=== PATIENT | female | born 1995 | race African-American/Black ===

== ENCOUNTER 2019-03-20 12:51 | Emergency (ER) | payer SELFPAY ==
[~2019-03-20] VITALS: Ht 165.1 cm; Wt 59.0 kg
[~2019-03-20 12:51] MED LIST: IBUPROFEN600 M1 PO; Isovue-300 100ml vial INJ PRN; Ketorolac 30mg Inj IV ONE; NKM; ZOFRAN ODT4 MG ORAL
[2019-03-20 12:52] VITALS: BP 130/78
--- NOTE | 2019-03-20 12:55 | NUR ---
ED Nurse Note: Patient brought in by ambulance from home c/o upper abdominal pain that has been an on going isue for the past few days, rates her pain a 8/10 pain, denies any nausea or vomiting, rates her pain as a constant and cramping pain. patient is alert and oriented x4, ambulatory with a steady gait. IV placed on left AC 20 gauge, patient placed in a monitor, will wait for further orders
[2019-03-20] MEDS ORDERED: Ketorolac 30mg Inj ONE (13:11)
[2019-03-20 13:18] LABS: BASOPHILS % (AUTO) 1.4 % (0.0-2.0); EOSINOPHILS % (AUTO) 0.7 % (0.0-3.0); HEMATOCRIT 32.4 % (37.0-47.0); HEMOGLOBIN 10.4 G/DL (12.0-16.0); LYMPHOCYTES % (AUTO) 19.4 % (20.0-45.0); MEAN CORPUSCULAR VOLUME 83 FL (80-99); NEUTROPHILS % (AUTO) 64.6 % (45.0-75.0); PLATELET COUNT 284 K/UL (150-450); RED BLOOD COUNT 3.92 M/UL (4.20-5.40); RED CELL DISTRIBUTION WIDTH 15.5 % (11.6-14.8); WHITE BLOOD COUNT 8.4 K/UL (4.8-10.8)
[2019-03-20 13:22] LABS: ANION GAP 8 mmol/L (5-15); BLOOD UREA NITROGEN 7 mg/dL (7-18); CARBON DIOXIDE 27 MMOL/L (21-32); CHLORIDE 105 MMOL/L (98-107); CREATININE 0.7 MG/DL (0.55-1.30); POTASSIUM 2.9 MMOL/L (3.5-5.1); SODIUM 140 MMOL/L (136-145)
[2019-03-20 13:27] LABS: ALANINE AMINOTRANSFERASE 15 U/L (12-78); ALBUMIN 3.4 G/DL (3.4-5.0); ALBUMIN/GLOBULIN RATIO 0.8 (1.0-2.7); ALKALINE PHOSPHATASE 71 U/L (46-116); ASPARTATE AMINO TRANSFERASE 15 U/L (15-37); BILIRUBIN,TOTAL 0.3 MG/DL (0.2-1.0)
[2019-03-20 14:25] LABS: APPEARANCE,URINE VERY CLOUDY; BILIRUBIN, URINE NEGATIVE (NEGATIVE); GLUCOSE, URINE (UA) NEGATIVE (NEGATIVE); KETONES,URINE NEGATIVE (NEGATIVE); LEUKOCYTE ESTERASE ,URINE 2+ (NEGATIVE); NITRITE,URINE NEGATIVE (NEGATIVE); PH,URINE 6 (4.5-8.0); PROTEIN,URINE 1+ (NEGATIVE); UROBILINOGEN,URINE 1 MG/DL (0.0-1.0)
[2019-03-20 14:27] LABS: COLOR,URINE YELLOW
--- NOTE | 2019-03-20 14:39 | NUR ---
ED Nurse Note: Consent signed by patient for IV contrast. Patient went down to CT.
--- NOTE | 2019-03-20 15:42 | Diagnostic Imaging Report ---
Clinical Indication: Abdominal pain Technique: No oral contrast utilized, per emergency room physician request IV administration nonionic contrast. Venous phase spiral acquisition obtained through the abdomen and pelvis. Multiplanar reconstructions were generated. Total dose length product 319 mGycm. CTDIvol(s) 14 mGy. Dose reduction achieved using automated exposure control Comparison: none Findings: The lack of enteric contrast limits assessment of the GI tract. No evidence of diverticulosis or diverticulitis. The appendix is normal. No small bowel distention. No free or loculated intraperitoneal gas or fluid is evident. There is trace free pelvic fluid. No free intraperitoneal gas. The distal esophagus, stomach, duodenum are unremarkable. The liver demonstrates some focal fatty change in the usual location adjacent to the falciform ligament. No other focal abnormality. The gallbladder, bile ducts, pancreas, spleen, adrenals, kidneys are all unremarkable. No renal or ureteral calculi. No hydronephrosis or hydroureter. No pelvic mass or adenopathy. 2.5 cm presumed dominant follicle seen in the left ovary. The included lung bases are clear. The bones are unremarkable. Impression: Limited assessment of the GI tract, due to lack of enteric contrast administration No definite acute or significant abnormality demonstrated Trace free cul-de-sac fluid, presumably physiologic Incidental finding focal hepatic fatty change The CT scanner at [facility] is accredited by the [employer] and the scans are performed using protocols designed to limit radiation exposure to as low as reasonably achievable to attain images of sufficient resolution adequate for diagnostic evaluation.
--- NOTE | 2019-03-20 15:49 | Emergency Room Report ---
History of Present Illness General Chief Complaint: Abdominal Pain Source: Patient Present Illness HPI 24-year-old female with history of tobacco smoke, here brought in by paramedics due to 3 days of abdominal pain mainly focused on left lower quadrant. Patient rating her pain 10 out of 10 that started being more painful this morning. Denies pain radiation, diarrhea, constipation, blood in stool. Patient reports that she has been feeling nausea however denies vomiting. Denies her symptoms starting after consuming new food, or recent travel. Patient denies any drug use, and alcohol intake. Patient at the beginning does not tell me that she has history of ADHD and takes Adderall however later after I disclosed to her that there was amphetamine in her urine she did admit to taking Adderall intermittently for her ADHD. Patient denies fever and chills, chest pain, shortness of breath, palpitation, headache and dizziness. Denies urinary frequency however complains of painful urination. Denies all other associated symptoms. Last menstrual period was last week patient denies being sexually active and denies . Allergies: Coded Allergies: No Known Allergies (Unverified , 12/19/13) Patient History Past Medical History: see triage record Past Surgical History: unable to obtain Pertinent Family History: none Social History: Reports: smoking Last Menstrual Period: 03/11/19 Now: No Immunizations: UTD Reviewed Nursing Documentation: PMH: Agreed; PSxH: Agreed Nursing Documentation-PMH Past Medical History: No Stated History Review of Systems All Other Systems: negative except mentioned in HPI Physical Exam Vital Signs Date Time Temp Pulse Resp B/P (MAP) Pulse Ox O2 Delivery O2 Flow Rate FiO2 03/20/19 12:28 98.4 90 18 130/78 (95) 98 Sp02 EP Interpretation: reviewed, normal General Appearance: no apparent distress, alert, GCS 15, non-toxic Head: normocephalic, atraumatic Eyes: bilateral eye normal inspection, bilateral eye PERRL ENT: hearing grossly normal, normal pharynx, no angioedema, normal voice Neck: full range of motion, supple/symm/no masses Respiratory: chest non-tender, lungs clear, normal breath sounds, no rhonchi, no wheezing, speaking full sentences Cardiovascular #1: regular rate, rhythm, no edema, no murmur, normal capillary refill Gastrointestinal: normal bowel sounds, non tender, soft, no mass, no organomegaly, no peritonitis, no bruit, non-distended, no guarding, no hernia, no pulsatile mass, no rebound Rectal: deferred Genitourinary: normal inspection, no CVA tenderness Musculoskeletal: back normal, gait/station normal, normal range of motion, non- tender Neurologic: alert, oriented x3, responsive, motor strength/tone normal, sensory intact, speech normal Psychiatric: judgement/insight normal, memory normal, mood/affect normal, no suicidal/homicidal ideation Skin: no rash Lymphatic: no adenopathy Medical Decision Making PA Attestation All my diagnosis and treatment plans were reviewed ad discussed with my supervising physician Dr. Babb Diagnostic Impression: Primary Impression: UTI (urinary tract infection) Additional Impressions: Hypokalemia Abdominal pain ER Course 24-year-old female with history of tobacco smoke, here brought in by paramedics due to 3 days of abdominal pain mainly focused on left lower quadrant. Patient rating her pain 10 out of 10 that started being more painful this morning. Denies pain radiation, diarrhea, constipation, blood in stool. Patient reports that she has been feeling nausea however denies vomiting. Denies her symptoms starting after consuming new food, or recent travel. Patient denies any drug use, and alcohol intake. Patient at the beginning does not tell me that she has history of ADHD and takes Adderall however later after I disclosed to her that there was amphetamine in her urine she did admit to taking Adderall intermittently for her ADHD. Patient denies fever and chills, chest pain, shortness of breath, palpitation, headache and dizziness. Denies urinary frequency however complains of painful urination. Denies all other associated symptoms. Last menstrual period was last week patient denies being sexually active and denies . Ddx considered but are not limited to: appendicitis, cholecystis, gastritis, gastroenteritis, UTI, pyelonephritis, SBO, diverticulitis, influenza with GI manifestation, SC, complication with Vital signs: are WNL, pt. is afebrile H&PE are most consistent with: UTI, unspecified abdominal pain, hypokalemia ORDERS: abdominal CT, abdominal pain set, EKG, Zofran, Tylenol, Macrobid, potassium chloride ED INTERVENTIONS: NS bolus, Zofran, Toradol, potassium chloride DISCHARGE: At this time pt. is stable for d/c to home. Will provide printed patient care instructions, and any necessary prescriptions. Care plan and follow up instructions have been discussed with the patient prior to discharge. Patient started feeling better after Toradol was given patient agrees with the above treatment I advised her to increase her potassium intake and also follow-up with her primary care physician if worsening symptoms return to the emergency room EKG Diagnostic Results Rate: normal Rhythm: NSR ST Segments: no acute changes Chest X-Ray Diagnostic Results Chest X-Ray Diagnostic Results : Chest X-Ray Ordered: Yes # of Views/Limited/Complete: 1 View Indication: Other EP Interpretation: Yes PA Xray: Interpretation reviewed, by supervising MD, and agrees with findings. Interpretation: no consolidation, no effusion, no pneumothorax Impression: No acute disease Electronically Signed by: Jerilyn Key PA-C CT/MRI/US Diagnostic Results CT/MRI/US Diagnostic Results : Imaging Test Ordered: CT abdomen pelvis with contrast Impression Within normal limits Last Vital Signs Date Time Temp Pulse Resp B/P (MAP) Pulse Ox O2 Delivery O2 Flow Rate FiO2 03/20/19 13:45 98.5 03/20/19 12:52 72 18 130/78 98 Disposition: HOME, SELF-CARE Condition: Stable Scripts Nitrofurantoin Monohyd/M-Cryst* (MACROBID 100 MG*) 100 Mg Capsule 100 MG ORAL EVERY 12 HOURS for 7 Days, #14 CAP Prov: Jerilyn Luu 03/20/19 Acetaminophen* (TYLENOL EXTRA STRENGTH*) 500 Mg Tablet 500 MG ORAL Q6H PRN for Mild Pain/Temp > 100.5, #30 TAB 0 Refills Prov: Jerilyn Luu 03/20/19 Potassium Chloride (Potassium Chloride) 20 Meq Tablet.er 20 MEQ PO DAILY for 5 Days, #5 TAB Prov: Jerilyn Luu 03/20/19 Ondansetron (Zofran) 4 Mg Tablet 4 MG ORAL Q6H PRN for Nausea & Vomiting, #10 TAB Prov: Jerilyn Luu 03/20/19 Referrals: NOT CHOSEN IPA/,REFERRING (PCP) Patient Instructions: Abdominal Pain, Adult, Hypokalemia, Urinary Tract Infection, [id number] Additional Instructions: Take medication as directed increase oral hydration specially electrolyte water. follow up with primary care physician if symptoms continue however if worsening abdominal pain return to the emergency room. At this time no acute finding was noted on your CT scan of abdomen. Further imaging and assessment may be needed to be requested by your primary care physician. Jerilyn Luu Mar 20, 2019 15:49
[2019-03-20] MEDS ORDERED: POTASSIUM CHLO20 ME3 PO (15:51)
[2019-03-20] MEDS ORDERED: TYLENOL EXTRA500 MG ORAL (15:51)
[2019-03-20] MEDS ORDERED: ZOFRAN4 M1 ORAL (15:51)
[2019-03-20] MEDS ORDERED: NITROFURANTOIN100 M2 ORAL (15:56)
[2019-03-20 16:00] VITALS: BP 125/80
--- NOTE | 2019-03-20 16:00 | NUR ---
ER DISCHARGE NOTE: Patient is cleared to be discharged per ERMD, pt is aox4, on room air, with stable vital signs. pt was given dc and prescription instructions, pt was able to verbalize understanding, pt id band and iv site removed without complications. pt is able to ambulate with steady gait. pt took all belongings.
--- NOTE | 2019-03-22 17:36 | Cardiology Report ---
APPROVED REPORT EKG Measurement Heart [id number] Normal sinus rhythm Septal infarct, age undetermined Abnormal ECG
== END 2019-03-20 16:00 | disposition home or self-care (01) ==
LOC: EDBD 12:51 → EMR 13:00
DX: N39.0 Urinary tract infection, site not specified (principal); E87.6 Hypokalemia; R10.32 Left lower quadrant pain; F17.200 Nicotine dependence, unspecified, uncomplicated
CPT/HCPCS: 36415; 74177; 80053; 80307; 81003; 81025; 83690; 85025; 85610; 85730; 86850; 86900; 86901; 93005; 96361; 96374; 96375; 99284; J1885; J2405; Q9967; J7030; J8499